=== PATIENT | female | born 1985 | race Caucasian/White ===

== ENCOUNTER 2019-09-05 09:18 | Emergency (ER) | payer MEDICAID ==
[~2019-09-05] VITALS: Ht 167.6 cm; Wt 64.0 kg
[2019-09-05] MEDS ORDERED: FLUORESCEIN SODIUM 1MG/STRIP LEFTEYE ONE ×2 (12:30→13:00)
[2019-09-05] MEDS ORDERED: TETRACAINE 0.5% OPHTH DROPS 4ML LEFTEYE ONE (12:30)
[2019-09-05] MEDS ORDERED: BALANCED SALT IRRIG SOLN 15ML IR ONE (12:30)
[2019-09-05 13:38] VITALS: BP 110/68
== END 2019-09-05 13:33 | disposition home or self-care (01) ==
LOC: ER 09:25
DX: H10.32 Unspecified acute conjunctivitis, left eye (principal)
CPT/HCPCS: 99284

== ENCOUNTER 2022-12-14 20:17 | Emergency (ER) | payer MEDICAID, OTHER ==
[~2022-12-14] VITALS: Ht 165.1 cm; Wt 77.0 kg
[2022-12-14 20:19] VITALS: BP 160/79
[2022-12-14] MEDS ORDERED: ACETAMINOPHEN 325MG TABLET PO ONE (20:45)
[2022-12-14] MEDS ORDERED: SODIUM CHLORIDE 0.9% 1000ML BAG (SEPSIS BOLUS) IV ONE (20:45)
[2022-12-14] MEDS ORDERED: ONDANSETRON 4MG ODT PO ONE (20:45)
[2022-12-14 21:22] LABS: BASOPHILS % 0.2 % (0.0-2.0); HEMATOCRIT. 30.5 % (36.0-48.0); HEMOGLOBIN. 10.3 g/dL (12.0-16.0); MEAN CORPUSCULAR VOLUME 80.2 fL (81.0-99.0); MEAN PLATELET VOLUME 7.5 fl (7.4-10.4); MONOCYTES % 6.3 % (2.0-8.0); NEUTROPHILS % 85.5 % (40.0-76.0); PLATELET 313 x1000/uL (130-400); RED CELL DISTRIBUTION WIDTH 14.2 % (11.6-14.6)
[2022-12-14 21:31] LABS: CHLORIDE 95 mEq/L (98-107); PROTHROMBIN TIME 11.1 sec (9.6-11.0)
[2022-12-14 21:34] LABS: HCG SCREEN NEGATIVE
== END 2022-12-15 00:59 | disposition left against medical advice (07) ==
LOC: ER 20:17
DX: Z53.21 Procedure and treatment not carried out due to patient leaving prior to being seen by health care provider (principal)
CPT/HCPCS: 36415; 71045; 80053; 82962; 83605; 84145; 84703; 85025; 85610; 87040; 99281; J7030